=== PATIENT | female | born 1930 | race Caucasian/White ===

== ENCOUNTER 2016-06-11 09:18 | Emergency (ER) | payer MEDICARE, OTHER ==
[2016-06-11 10:30] LABS: MEAN CORPUSCULAR HEMOGLOBIN 31.2 pg (27.0-33.0); MEAN CORPUSCULAR HGB CONC 32.6 g/dl (32.0-36.5); MEAN CORPUSCULAR VOLUME 95.6 fl (80.0-96.0); RED CELL DISTRIBUTION WIDTH 12.9 % (11.5-14.5); WHITE BLOOD COUNT 9.6 K/mm3 (4.0-10.0)
[2016-06-11 10:37] LABS: INR 2.72
--- NOTE | 2016-06-11 11:02 | EDDOCDS ---
Physician Documentation [facility] Name: Justine Gomez Age: 85 yrs Sex: Female : 1930 Arrival Date: 06/11/2016 Time: 09:18 Bed I8 / 16 Private MD: Home Disposition: 06/11/16 10:52 Discharged to Home/Self Care. Impression: Epistaxis - Resolved. - Condition is Stable. - Discharge Instructions: Nosebleed. - Prescriptions for Bactroban Nasal 2 % Nasal Ointment - apply 1 application by TOPICAL route every 12 hours for 5 days; 15 tube. - Medication Reconciliation form. - Follow up: Home; When: Call to arrange an appointment; Reason: Wound/Symptom Recheck, Recheck today's complaints, Worsening of conditions, Continuance of care. - Problem is new. - Symptoms are resolved. - Notes: Your INR is 2.72 today. Please call your regular doctor about this result for further instructions regarding your medications. Historical: - Allergies: Codeine Sulfatehallucinations; - Home Meds: 1. benazepril 20 mg oral tab 1 tab 2 times per day (Last dose: 06/11/2016 08:00) 2. carvedilol 25 mg oral tab 1 tab nightly 3. carvedilol 12.5 mg oral tab daily (Last dose: 06/11/2016 03:00) 4. digoxin 125 mcg Oral tab 1 tab once daily (Last dose: 06/11/2016 08:00) 5. Coumadin 2.5 mg oral tab 1 tab once daily , fri, friday, friday, friday (Last dose: 06/10/2016 16:00) 6. Coumadin 5 mg Oral tab 1 tab once daily fri, 7. aspirin 81 mg Oral TbEC 1 tab once daily (Last dose: 06/11/2016 08:00) 8. furosemide 40 mg Oral tab .25 tab once daily (Last dose: 06/11/2016 08:00) 9. spironolactone 25 mg Oral tab .25 tab once daily (Last dose: 06/11/2016 08:00) 10. multivitamin Oral tab daily 11. Vision Formula oral tab daily 12. Vitamin B-6 100 mg Oral tab daily 13. Vitamin D Oral 1,000 unit daily 14. Eye Drops ophthalmic drop daily - PMHx: Hypertension; cardiomyopathy; CHF; - PSHx: Pacemaker Insertion; Mitral Valve Repair; Tubal ligation; - Social history: Smoking status: Patient states was never smoker of tobacco. No barriers to communication noted, The patient speaks fluent Syriac, Speaks appropriately for age. - Family history: Not pertinent. - : The pt / caregiver states he / she is on anticoagulants: coumadin. Home medication list is obtained from the patient. - Exposure Risk Screening:: None identified. Vital Signs: 06/11 09:19 BP 169 / 86; Pulse 71; Resp 18; Temp 96.6(O); Pulse Ox 95% on R/A; Weight 63.5 kg / elp 139.99 lbs (R); Height 5 ft. 6 in. (167.64 cm) (R); 10:59 BP 170 / 75; Pulse 64; Resp 18; Temp 97.3(O); Pulse Ox 94% on R/A; Pain 0/10; ck1 09:19 Body Mass Index 22.60 (63.50 kg, 167.64 cm) elp MDM: 09:32 CBC Ordered. EDMS 09:32 PT/INR Ordered. EDMS 10:46 CBC Reviewed. cc10 10:46 PT/INR Reviewed. cc10 Signatures: Dispatcher [employer] Hortensia Sánchez RN RN ck1 Dede Molina RN RN hs1 Joel Turner PA-C PABrian cc10 The chart was reviewed and I authenticate all verbal orders and agree with the evaluation and treatment provided.Corrections: (The following items were deleted from the chart) 10:16 09:32 BASIC METABOLIC PROFILE+LAB ordered. EDMS EDMS MTDD
--- NOTE | 2016-06-11 11:02 | EDDOCDS ---
Nurse's Notes [facility] Name: Justine Gomez Age: 85 yrs Sex: Female : 1930 Arrival Date: 06/11/2016 Time: 09:18 Bed I8 / 16 Private MD: Home Diagnosis: Epistaxis-Resolved Presentation: 06/11 09:25 Presenting complaint: Patient states: nosebleed on Coumadin. Patient states started at hs1 7am. Noted to not be bleeding at present. Adult Sepsis Screening: The patient does not have new or worsening altered mentation. Patient's respiratory rate is less than 22. Systolic blood pressure is greater than 100. Patient has a qSOFA score of 0- Negative Sepsis Screen. Suicide/Homicide risk assessment- the patient denies having any suicidal and/or homicidal ideations and does not present with any other emotional, behavioral or mental health complaints. Status: Patient is not a behavioral services tech or dependent. Transition of care: patient was not received from another setting of care. 09:25 Acuity: DERECK Level 3 hs1 09:25 Method Of Arrival: Walkin/Carried/Asstd hs1 Triage Assessment: 09:37 General: Appears in no apparent distress, comfortable, Behavior is appropriate for age, hs1 cooperative. Pain: Denies pain. Neurological: No deficits noted. Respiratory: No deficits noted. Airway is patent Respiratory effort is even, unlabored, Respiratory pattern is regular, symmetrical. Derm: Skin is pink, warm & dry. normal. Historical: - Allergies: Codeine Sulfatehallucinations; - Home Meds: 1. benazepril 20 mg oral tab 1 tab 2 times per day (Last dose: 06/11/2016 08:00) 2. carvedilol 25 mg oral tab 1 tab nightly 3. carvedilol 12.5 mg oral tab daily (Last dose: 06/11/2016 03:00) 4. digoxin 125 mcg Oral tab 1 tab once daily (Last dose: 06/11/2016 08:00) 5. Coumadin 2.5 mg oral tab 1 tab once daily , fri, friday, friday, friday (Last dose: 06/10/2016 16:00) 6. Coumadin 5 mg Oral tab 1 tab once daily fri, 7. aspirin 81 mg Oral TbEC 1 tab once daily (Last dose: 06/11/2016 08:00) 8. furosemide 40 mg Oral tab .25 tab once daily (Last dose: 06/11/2016 08:00) 9. spironolactone 25 mg Oral tab .25 tab once daily (Last dose: 06/11/2016 08:00) 10. multivitamin Oral tab daily 11. Vision Formula oral tab daily 12. Vitamin B-6 100 mg Oral tab daily 13. Vitamin D Oral 1,000 unit daily 14. Eye Drops ophthalmic drop daily - PMHx: Hypertension; cardiomyopathy; CHF; - PSHx: Pacemaker Insertion; Mitral Valve Repair; Tubal ligation; - Social history: Smoking status: Patient states was never smoker of tobacco. No barriers to communication noted, The patient speaks fluent French, Speaks appropriately for age. - Family history: Not pertinent. - : The pt / caregiver states he / she is on anticoagulants: coumadin. Home medication list is obtained from the patient. - Exposure Risk Screening:: None identified. Screenin:00 Screening information is obtained from the patient. Fall risk: No risks identified. ck1 Assistance ADL's: requires no assistance with activities of daily living. Abuse/DV Screen: The patient / caregiver reports he/she is: not in a situation that causes fear, pain or injury. Nutritional screening: No deficits noted. Advance Directives: Currently, there is no health care proxy. home support is adequate. Assessment: 11:01 General: Appears in no apparent distress, comfortable, Behavior is appropriate for age, ck1 cooperative. Pain: Denies pain. Neurological: Level of Consciousness is awake, alert, obeys commands, Oriented to person, place, time. Respiratory: Respiratory effort is unlabored, Respiratory pattern is regular, symmetrical. Derm: Skin is intact, is healthy with good turgor, Skin is pink, warm & dry. Musculoskeletal: Circulation, motion, and sensation intact Range of motion intact in all extremities. Vital Signs: 09:19 BP 169 / 86; Pulse 71; Resp 18; Temp 96.6(O); Pulse Ox 95% on R/A; Weight 63.5 kg (R); elp Height 5 ft. 6 in. (167.64 cm) (R); 10:59 BP 170 / 75; Pulse 64; Resp 18; Temp 97.3(O); Pulse Ox 94% on R/A; Pain 0/10; ck1 09:19 Body Mass Index 22.60 (63.50 kg, 167.64 cm) [facility] Vitals: 09:19 Log In Time: June 11, 2016 at 09:17. [facility] ED Course: 09:19 Patient visited by Verena Rincon PCA. elp 09:19 Home is Private Physician. elp 09:19 Patient moved to Waiting elp 09:20 Patient visited by Verena Rincon PCA. elp 09:20 Patient moved to Pre RCE elp 09:26 Triage Initiated hs1 09:38 Patient moved to I8 / 16 hs1 09:41 Joel Turner [facility] cc10 09:41 Sweetie Jones MD is Attending Physician. cc10 09:41 Patient visited by Joel Turner PA-C. cc10 09:42 Patient visited by Joel Turner PA-C. cc10 10:20 Patient visited by Thania Mosquera RN. mcp 10:20 PT/INR Sent. mcp 10:20 CBC Sent. mcp 10:20 Labs drawn. (by ED staff). Sent per order to lab. mcp 10:52 Home is Referral Physician. cc10 11:00 The patient / caregiver is instructed regarding the plan of care and ED course. ck1 11:00 No IV's were initiated during this patient's visit. No procedures done that require ck1 assistance. Order Results: Lab Order: CBC; SPEC'M 06/11/16 10:18 Test: WHITE BLOOD COUNT; Value: 9.6; Range: 4.0-10.0; Units: K/mm3; Status: F Test: RED BLOOD COUNT; Value: 3.96; Range: 4.00-5.40; Abnormal: Below low normal; Units: M/mm3; Status: F Test: HEMOGLOBIN; Value: 12.4; Range: 12.0-16.0; Units: g/dl; Status: F Test: HEMATOCRIT; Value: 37.9; Range: 36.0-47.0; Units: %; Status: F Test: MEAN CORPUSCULAR VOLUME; Value: 95.6; Range: 80.0-96.0; Units: fl; Status: F Test: MEAN CORPUSCULAR HEMOGLOBIN; Value: 31.2; Range: 27.0-33.0; Units: pg; Status: F Test: MEAN CORPUSCULAR HGB CONC; Value: 32.6; Range: 32.0-36.5; Units: g/dl; Status: F Test: RED CELL DISTRIBUTION WIDTH; Value: 12.9; Range: 11.5-14.5; Units: %; Status: F Test: PLATELET COUNT, AUTOMATED; Value: 214; Range: 150-450; Units: k/mm3; Status: F Lab Order: PT/INR; SPEC'M 06/11/16 10:18 Test: PROTHROMBIN TIME; Value: 28.9; Range: 12.3-14.5; Abnormal: Above high normal; Units: SECONDS; Status: F Test: INR; Value: 2.72; Status: F Test Note: ; THERAPUTIC HUMAN INR VALUES INDICATIONS NORMAL RANGES PROPHYLAXIS/TREATMENT OF: VENOUS THROMBOSIS 2.0-3.0 PULMONARY EMBOLISM 2.0-3.0 PREVENTION OF SYSTEMIC EMBOLISM FROM: TISSUE HEART VALVES 2.0-3.0 ACUTE MYOCARDIAL INFARCTION 2.0-3.0 VALVULAR HEART DISEASE 2.0-3.0 ATRIAL FIBRILLATION 2.0-3.0 MECHANICAL VALVES(HIGH RISK) 2.5-3.5 RECURRENT MYOCARDIAL INFARCTION 2.5-3.5 Outcome: 10:52 Discharge ordered by Provider. cc10 11:00 Discharge Assessment: Patient awake, alert and oriented x 3. No cognitive and/or ck1 functional deficits noted. Patient verbalized understanding of disposition instructions. patient administered narcotics - no. The following High Risk Discharge criteria are identified: None. Discharged to home ambulatory. Condition: stable. Discharge instructions given to patient, Instructed on discharge instructions, follow up and referral plans. medication usage, Demonstrated understanding of instructions, medications, Pt was receptive of discharge instructions/ teaching. Prescriptions given X 1. No special radiology studies were completed. Property :Personal belongings accompany Pt. 11:02 Patient left the ED. ck1 Signatures: Thania Mosquera RN RN [facility] Hortensia Yu RN RN ck1 Dede Molina RN RN hs1 Sergey, Verena, LUMBER DRIVER LUMBER DRIVER elp Joel Turner, PA-C PA-C cc10 MTDD
--- NOTE | 2016-06-13 12:03 | EDDOCDS ---
Nurse's Notes [facility] Name: Justine Gomez Age: 85 yrs Sex: Female : 1930 Arrival Date: 06/11/2016 Time: 09:18 Bed I8 / 16 Private MD: Home Diagnosis: Epistaxis-Resolved Presentation: 06/11 09:25 Presenting complaint: Patient states: nosebleed on Coumadin. Patient states started at hs1 7am. Noted to not be bleeding at present. Adult Sepsis Screening: The patient does not have new or worsening altered mentation. Patient's respiratory rate is less than 22. Systolic blood pressure is greater than 100. Patient has a qSOFA score of 0- Negative Sepsis Screen. Suicide/Homicide risk assessment- the patient denies having any suicidal and/or homicidal ideations and does not present with any other emotional, behavioral or mental health complaints. Status: Patient is not a coffee maker servicer or dependent. Transition of care: patient was not received from another setting of care. 09:25 Acuity: DERECK Level 3 hs1 09:25 Method Of Arrival: Walkin/Carried/Asstd hs1 Triage Assessment: 09:37 General: Appears in no apparent distress, comfortable, Behavior is appropriate for age, hs1 cooperative. Pain: Denies pain. Neurological: No deficits noted. Respiratory: No deficits noted. Airway is patent Respiratory effort is even, unlabored, Respiratory pattern is regular, symmetrical. Derm: Skin is pink, warm & dry. normal. Historical: - Allergies: Codeine Sulfatehallucinations; - Home Meds: 1. benazepril 20 mg oral tab 1 tab 2 times per day (Last dose: 06/11/2016 08:00) 2. carvedilol 25 mg oral tab 1 tab nightly 3. carvedilol 12.5 mg oral tab daily (Last dose: 06/11/2016 03:00) 4. digoxin 125 mcg Oral tab 1 tab once daily (Last dose: 06/11/2016 08:00) 5. Coumadin 2.5 mg oral tab 1 tab once daily , fri, friday, friday, friday (Last dose: 06/10/2016 16:00) 6. Coumadin 5 mg Oral tab 1 tab once daily fri, 7. aspirin 81 mg Oral TbEC 1 tab once daily (Last dose: 06/11/2016 08:00) 8. furosemide 40 mg Oral tab .25 tab once daily (Last dose: 06/11/2016 08:00) 9. spironolactone 25 mg Oral tab .25 tab once daily (Last dose: 06/11/2016 08:00) 10. multivitamin Oral tab daily 11. Vision Formula oral tab daily 12. Vitamin B-6 100 mg Oral tab daily 13. Vitamin D Oral 1,000 unit daily 14. Eye Drops ophthalmic drop daily - PMHx: Hypertension; cardiomyopathy; CHF; - PSHx: Pacemaker Insertion; Mitral Valve Repair; Tubal ligation; - Social history: Smoking status: Patient states was never smoker of tobacco. No barriers to communication noted, The patient speaks fluent Sami, Speaks appropriately for age. - Family history: Not pertinent. - : The pt / caregiver states he / she is on anticoagulants: coumadin. Home medication list is obtained from the patient. - Exposure Risk Screening:: None identified. Screenin:00 Screening information is obtained from the patient. Fall risk: No risks identified. ck1 Assistance ADL's: requires no assistance with activities of daily living. Abuse/DV Screen: The patient / caregiver reports he/she is: not in a situation that causes fear, pain or injury. Nutritional screening: No deficits noted. Advance Directives: Currently, there is no health care proxy. home support is adequate. Assessment: 11:01 General: Appears in no apparent distress, comfortable, Behavior is appropriate for age, ck1 cooperative. Pain: Denies pain. Neurological: Level of Consciousness is awake, alert, obeys commands, Oriented to person, place, time. Respiratory: Respiratory effort is unlabored, Respiratory pattern is regular, symmetrical. Derm: Skin is intact, is healthy with good turgor, Skin is pink, warm & dry. Musculoskeletal: Circulation, motion, and sensation intact Range of motion intact in all extremities. Vital Signs: 09:19 BP 169 / 86; Pulse 71; Resp 18; Temp 96.6(O); Pulse Ox 95% on R/A; Weight 63.5 kg (R); elp Height 5 ft. 6 in. (167.64 cm) (R); 10:59 BP 170 / 75; Pulse 64; Resp 18; Temp 97.3(O); Pulse Ox 94% on R/A; Pain 0/10; ck1 09:19 Body Mass Index 22.60 (63.50 kg, 167.64 cm) [facility] Vitals: 09:19 Log In Time: June 11, 2016 at 09:17. [facility] ED Course: 09:19 Patient visited by Verena Rincon PCA. elp 09:19 Home is Private Physician. elp 09:19 Patient moved to Waiting elp 09:20 Patient visited by Verena Rincon PCA. elp 09:20 Patient moved to Pre RCE elp 09:26 Triage Initiated hs1 09:38 Patient moved to I8 / 16 hs1 09:41 Joel Turner PA-C is PHCP. cc10 09:41 Sweetie Jones MD is Attending Physician. cc10 09:41 Patient visited by Joel Turner PA-C. cc10 09:42 Patient visited by Joel Turner PA-C. cc10 10:20 Patient visited by Thania Mosquera RN. mcp 10:20 PT/INR Sent. mcp 10:20 CBC Sent. mcp 10:20 Labs drawn. (by ED staff). Sent per order to lab. mcp 10:52 Home is Referral Physician. cc10 11:00 The patient / caregiver is instructed regarding the plan of care and ED course. ck1 11:00 No IV's were initiated during this patient's visit. No procedures done that require ck1 assistance. 11:05 [facility] Payment Agreement was scanned into [employer] and attached to record. jp5 15:08 T-Sheet-- Draft Copy was scanned into [employer] and attached to record. gb Order Results: Lab Order: CBC; SPEC'M 06/11/16 10:18 Test: WHITE BLOOD COUNT; Value: 9.6; Range: 4.0-10.0; Units: K/mm3; Status: F Test: RED BLOOD COUNT; Value: 3.96; Range: 4.00-5.40; Abnormal: Below low normal; Units: M/mm3; Status: F Test: HEMOGLOBIN; Value: 12.4; Range: 12.0-16.0; Units: g/dl; Status: F Test: HEMATOCRIT; Value: 37.9; Range: 36.0-47.0; Units: %; Status: F Test: MEAN CORPUSCULAR VOLUME; Value: 95.6; Range: 80.0-96.0; Units: fl; Status: F Test: MEAN CORPUSCULAR HEMOGLOBIN; Value: 31.2; Range: 27.0-33.0; Units: pg; Status: F Test: MEAN CORPUSCULAR HGB CONC; Value: 32.6; Range: 32.0-36.5; Units: g/dl; Status: F Test: RED CELL DISTRIBUTION WIDTH; Value: 12.9; Range: 11.5-14.5; Units: %; Status: F Test: PLATELET COUNT, AUTOMATED; Value: 214; Range: 150-450; Units: k/mm3; Status: F Lab Order: PT/INR; SPEC'M 06/11/16 10:18 Test: PROTHROMBIN TIME; Value: 28.9; Range: 12.3-14.5; Abnormal: Above high normal; Units: SECONDS; Status: F Test: INR; Value: 2.72; Status: F Test Note: ; THERAPUTIC HUMAN INR VALUES INDICATIONS NORMAL RANGES PROPHYLAXIS/TREATMENT OF: VENOUS THROMBOSIS 2.0-3.0 PULMONARY EMBOLISM 2.0-3.0 PREVENTION OF SYSTEMIC EMBOLISM FROM: TISSUE HEART VALVES 2.0-3.0 ACUTE MYOCARDIAL INFARCTION 2.0-3.0 VALVULAR HEART DISEASE 2.0-3.0 ATRIAL FIBRILLATION 2.0-3.0 MECHANICAL VALVES(HIGH RISK) 2.5-3.5 RECURRENT MYOCARDIAL INFARCTION 2.5-3.5 Outcome: 10:52 Discharge ordered by Provider. cc10 11:00 Discharge Assessment: Patient awake, alert and oriented x 3. No cognitive and/or ck1 functional deficits noted. Patient verbalized understanding of disposition instructions. patient administered narcotics - no. The following High Risk Discharge criteria are identified: None. Discharged to home ambulatory. Condition: stable. Discharge instructions given to patient, Instructed on discharge instructions, follow up and referral plans. medication usage, Demonstrated understanding of instructions, medications, Pt was receptive of discharge instructions/ teaching. Prescriptions given X 1. No special radiology studies were completed. Property :Personal belongings accompany Pt. 11:02 Patient left the ED. ck1 Signatures: Thania Mosquera RN RN Lexus Starkey, Adelina Galdamezie,RN RN ck1 Dede Molina, RN RN hs1 Verena Rincon, OUTSIDE CONTRACTOR SALES OUTSIDE CONTRACTOR SALES elp Joel Turner, GLENNA MANZANARES cc10 Paula Siegel jp5 Chart Complete MTDD
--- NOTE | 2016-06-13 12:03 | EDDOCDS ---
Physician Documentation [facility] Name: Justine Gomez Age: 85 yrs Sex: Female : 1930 Arrival Date: 06/11/2016 Time: 09:18 Bed I8 / 16 Private MD: Home Disposition: 06/11/16 10:52 Discharged to Home/Self Care. Impression: Epistaxis - Resolved. - Condition is Stable. - Discharge Instructions: Nosebleed. - Prescriptions for Bactroban Nasal 2 % Nasal Ointment - apply 1 application by TOPICAL route every 12 hours for 5 days; 15 tube. - Medication Reconciliation form. - Follow up: Home; When: Call to arrange an appointment; Reason: Wound/Symptom Recheck, Recheck today's complaints, Worsening of conditions, Continuance of care. - Problem is new. - Symptoms are resolved. - Notes: Your INR is 2.72 today. Please call your regular doctor about this result for further instructions regarding your medications. Historical: - Allergies: Codeine Sulfatehallucinations; - Home Meds: 1. benazepril 20 mg oral tab 1 tab 2 times per day (Last dose: 06/11/2016 08:00) 2. carvedilol 25 mg oral tab 1 tab nightly 3. carvedilol 12.5 mg oral tab daily (Last dose: 06/11/2016 03:00) 4. digoxin 125 mcg Oral tab 1 tab once daily (Last dose: 06/11/2016 08:00) 5. Coumadin 2.5 mg oral tab 1 tab once daily , fri, friday, friday, friday (Last dose: 06/10/2016 16:00) 6. Coumadin 5 mg Oral tab 1 tab once daily fri, 7. aspirin 81 mg Oral TbEC 1 tab once daily (Last dose: 06/11/2016 08:00) 8. furosemide 40 mg Oral tab .25 tab once daily (Last dose: 06/11/2016 08:00) 9. spironolactone 25 mg Oral tab .25 tab once daily (Last dose: 06/11/2016 08:00) 10. multivitamin Oral tab daily 11. Vision Formula oral tab daily 12. Vitamin B-6 100 mg Oral tab daily 13. Vitamin D Oral 1,000 unit daily 14. Eye Drops ophthalmic drop daily - PMHx: Hypertension; cardiomyopathy; CHF; - PSHx: Pacemaker Insertion; Mitral Valve Repair; Tubal ligation; - Social history: Smoking status: Patient states was never smoker of tobacco. No barriers to communication noted, The patient speaks fluent Yi, Speaks appropriately for age. - Family history: Not pertinent. - : The pt / caregiver states he / she is on anticoagulants: coumadin. Home medication list is obtained from the patient. - Exposure Risk Screening:: None identified. Vital Signs: 06/11 09:19 BP 169 / 86; Pulse 71; Resp 18; Temp 96.6(O); Pulse Ox 95% on R/A; Weight 63.5 kg / elp 139.99 lbs (R); Height 5 ft. 6 in. (167.64 cm) (R); 10:59 BP 170 / 75; Pulse 64; Resp 18; Temp 97.3(O); Pulse Ox 94% on R/A; Pain 0/10; ck1 09:19 Body Mass Index 22.60 (63.50 kg, 167.64 cm) elp MDM: 09:32 CBC Ordered. EDMS 09:32 PT/INR Ordered. EDMS 10:46 CBC Reviewed. cc10 10:46 PT/INR Reviewed. cc10 11:05 [facility] Payment Agreement was scanned into [employer] and attached to record. 5 11:05 Financial registration complete. jp5 15:08 T-Sheet-- Draft Copy was scanned into [employer] and attached to record. gb Signatures: Dispatcher [employer] EDIA Lexus Gutierrez, Reg Reg gb Hortensia YuRN RN ck1 Dede Molina RN RN hs1 Joel Turner PA-C PABrian cc10 Paula Siegel jp5 The chart was reviewed and I authenticate all verbal orders and agree with the evaluation and treatment provided.Corrections: (The following items were deleted from the chart) 10:16 09:32 BASIC METABOLIC PROFILE+LAB ordered. EDMS EDMS Attachments: 11:05 [facility] Payment Agreement jp5 15:08 T-Sheet-- Draft Copy gb Chart Complete MTDD
--- NOTE | 2016-06-13 12:03 | EDDOCDS ---
Physician Documentation [facility] Name: Justine Gomez Age: 85 yrs Sex: Female : 1930 Arrival Date: 06/11/2016 Time: 09:18 Bed I8 / 16 Private MD: Home Disposition: 06/11/16 10:52 Discharged to Home/Self Care. Impression: Epistaxis - Resolved. - Condition is Stable. - Discharge Instructions: Nosebleed. - Prescriptions for Bactroban Nasal 2 % Nasal Ointment - apply 1 application by TOPICAL route every 12 hours for 5 days; 15 tube. - Medication Reconciliation form. - Follow up: Home; When: Call to arrange an appointment; Reason: Wound/Symptom Recheck, Recheck today's complaints, Worsening of conditions, Continuance of care. - Problem is new. - Symptoms are resolved. - Notes: Your INR is 2.72 today. Please call your regular doctor about this result for further instructions regarding your medications. Historical: - Allergies: Codeine Sulfatehallucinations; - Home Meds: 1. benazepril 20 mg oral tab 1 tab 2 times per day (Last dose: 06/11/2016 08:00) 2. carvedilol 25 mg oral tab 1 tab nightly 3. carvedilol 12.5 mg oral tab daily (Last dose: 06/11/2016 03:00) 4. digoxin 125 mcg Oral tab 1 tab once daily (Last dose: 06/11/2016 08:00) 5. Coumadin 2.5 mg oral tab 1 tab once daily , fri, friday, friday, friday (Last dose: 06/10/2016 16:00) 6. Coumadin 5 mg Oral tab 1 tab once daily fri, 7. aspirin 81 mg Oral TbEC 1 tab once daily (Last dose: 06/11/2016 08:00) 8. furosemide 40 mg Oral tab .25 tab once daily (Last dose: 06/11/2016 08:00) 9. spironolactone 25 mg Oral tab .25 tab once daily (Last dose: 06/11/2016 08:00) 10. multivitamin Oral tab daily 11. Vision Formula oral tab daily 12. Vitamin B-6 100 mg Oral tab daily 13. Vitamin D Oral 1,000 unit daily 14. Eye Drops ophthalmic drop daily - PMHx: Hypertension; cardiomyopathy; CHF; - PSHx: Pacemaker Insertion; Mitral Valve Repair; Tubal ligation; - Social history: Smoking status: Patient states was never smoker of tobacco. No barriers to communication noted, The patient speaks fluent Indonesian, Speaks appropriately for age. - Family history: Not pertinent. - : The pt / caregiver states he / she is on anticoagulants: coumadin. Home medication list is obtained from the patient. - Exposure Risk Screening:: None identified. Vital Signs: 06/11 09:19 BP 169 / 86; Pulse 71; Resp 18; Temp 96.6(O); Pulse Ox 95% on R/A; Weight 63.5 kg / elp 139.99 lbs (R); Height 5 ft. 6 in. (167.64 cm) (R); 10:59 BP 170 / 75; Pulse 64; Resp 18; Temp 97.3(O); Pulse Ox 94% on R/A; Pain 0/10; ck1 09:19 Body Mass Index 22.60 (63.50 kg, 167.64 cm) elp MDM: 09:32 CBC Ordered. EDMS 09:32 PT/INR Ordered. EDMS 10:46 CBC Reviewed. cc10 10:46 PT/INR Reviewed. cc10 11:05 [facility] Payment Agreement was scanned into [employer] and attached to record. 5 11:05 Financial registration complete. jp5 15:08 T-Sheet-- Draft Copy was scanned into [employer] and attached to record. gb Signatures: Dispatcher MedHo EDNH Lexus Gutierrez, Reg Reg gb Hortensia YuRN RN ck1 Dede Molina RN RN hs1 Joel Turner PA-C PABrian cc10 Paula Siegel jp5 The chart was reviewed and I authenticate all verbal orders and agree with the evaluation and treatment provided.Corrections: (The following items were deleted from the chart) 10:16 09:32 BASIC METABOLIC PROFILE+LAB ordered. EDMS EDMS Attachments: 11:05 [facility] Payment Agreement jp5 15:08 T-Sheet-- Draft Copy gb Chart Complete MTDD
== END 2016-06-11 11:02 | disposition home or self-care (01) ==
LOC: M ED 09:18
DX: R04.0 Epistaxis (principal); I10 Essential (primary) hypertension; I42.9 Cardiomyopathy, unspecified; I50.20 Unspecified systolic (congestive) heart failure; Z95.0 Presence of cardiac pacemaker; Z95.4 Presence of other heart-valve replacement; Z79.01 Long term (current) use of anticoagulants; Z79.899 Other long term (current) drug therapy; Z79.82 Long term (current) use of aspirin; Z88.5 Allergy status to narcotic agent

== ENCOUNTER 2017-03-13 07:35 | Day surgery (SDC) | payer MEDICARE, OTHER ==
[~2017-03-13] VITALS: Ht 167.6 cm; Wt 65.8 kg
[~2017-03-13 07:35] MED LIST: ASPI1TAB PO; BENA20TA8 PO; CALCTAB29 PO; CARV12.5 PO; CARV25TA PO; DIGO0.12 PO; FOLI800C PO; LASI40TA PO; MULT1TAB10 PO; OFLOXACIN 0.3 % (OCUFLOX) OPTH SOL 5ML OS ONE; PARO10TA3 PO; PHENYLEPHRINE 2.5% OPHTH SOL 2ML OS ONE; PROPARACAINE 0.5% OPHTH SOL 15ML OS ONE; SPIR25TA2 PO; TROPICAMIDE 1% OPHTH SOLN 2ML OS ONE; VISI1TAB PO; VITA50TA43 PO; WARF-23 PO; dry eye drops OU
[2017-03-13] MEDS ORDERED: LIDOCAINE 1% MDV 20ML VIAL SQ PRN (08:00)
[2017-03-13] MEDS ORDERED: POVIDONE-IODINE 5% OPHTH PREP SOL 30ML As Ordered ONE (09:16)
[2017-03-13] MEDS ORDERED: BALANCED SALT IRRIGATION SOLUTION 500ML BAG (FOR OR EYE MACHINE) As Ordered ONE (09:16)
[2017-03-13] MEDS ORDERED: ACETYLCHOLINE OPHTH SOLN 1% 2ML (MIOCHOL-E) As Ordered ONE (09:16)
[2017-03-13] MEDS ORDERED: LIDOCAINE 0.75%/EPINEPHRINE 0.025% IN BSS 1ML SYR INTRACAMERAL (OR ONLY) As Ordered ONE (09:17)
[2017-03-13] MEDS ORDERED: DUOVISC (0.50ML VISCOAT/0.55ML PROVISC) OPHTH KIT As Ordered ONE (09:17)
[2017-03-13] MEDS ORDERED: CEFUROXIME 1MG/0.1ML INTRACAMERAL INJ As Ordered ONE (09:17)
[2017-03-13] MEDS ORDERED: fentaNYL 100 MCG/2 ML INJECTION (J3010) As Ordered ONE (09:25)
[2017-03-13] MEDS ORDERED: MIDAZOLAM INJ 2 MG/2 ML VIAL (J2250) As Ordered ONE (09:25)
[2017-03-13 10:30] VITALS: BP 174/74
--- NOTE | 2017-03-15 10:49 | RO ---
DATE OF PROCEDURE: 03/13/2017 PREOPERATIVE DIAGNOSIS: Visually significant nuclear sclerotic cataract left eye. POSTOPERATIVE DIAGNOSIS: Visually significant nuclear sclerotic cataract left eye. PROCEDURE: Cataract extraction with use of phacoemulsification and placement of intraocular lens, AU00T0, 23.0, left eye. SURGEON: Juan F Vasquez DO LOGISTICS ADMINISTRATOR: ANESTHESIA: Local with monitored anesthesia care (MAC). COMPLICATIONS: None. POSTOPERATIVE CONDITION: Stable. INDICATION FOR SURGERY: Blurred vision left eye affecting patient's activities of daily living. DESCRIPTION OF PROCEDURE: The patient was seen in the preoperative area and properly identified. The correct operative eye was identified and marked. Attention was turned to that eye. The patient received topical antibiotics in the preoperative area. The patient then received topical dilating drops consisting of tropicamide and phenylephrine. The patient was then transferred to the operating room. The correct side was re-identified. The patient received topical anesthetics and antibiotics on the surface of the eye. The eye was prepped and draped in a sterile fashion. The upper and lower eyelids were isolated with Tegaderm tape, and the lids were held open with an adjustable speculum. Using a sideport blade, a paracentesis incision was made. Intraocular preservative-free lidocaine was then injected into the anterior chamber. Viscoelastic was then injected into the anterior chamber through the paracentesis. Using a 2.4 mm sharp-tipped keratome, the anterior chamber was entered via a temporal clear corneal incision. A continuous curvilinear capsulorrhexis was created with the aid of a 26-gauge cystotome and Utrata forceps. Hydrodissection was performed with balanced salt solution (BSS) on a blunt cannula until the nucleus was freely mobile. The crystalline lens was phacoemulsified and aspirated. Additional cohesive viscoelastic was placed into the capsular bag to deepen it. A AU00T0, 23.0 lens was placed into the capsular bag and confirmed by visualizing the continuous curvilinear capsulorrhexis. Additional irrigation and aspiration was used to remove cortical material and remaining viscoelastic. The clear corneal incision was hydrated with BSS on a blunt cannula. The lens was well positioned. The incisions were then tested for leaks and found to be negative. The eye was then palpated for appropriate pressure and adjusted accordingly with BSS. The eyelid speculum was carefully removed. A shield was placed. The patient tolerated the procedure well and was discharged to the recovery unit in a stable condition. MTDD
== END 2017-03-13 10:51 | disposition home or self-care (01) ==
LOC: M SDC 07:35
PROVIDERS: ATTEND Ophthalmology
DX: H25.12 Age-related nuclear cataract, left eye (principal); I48.91 Unspecified atrial fibrillation; I10 Essential (primary) hypertension; K21.9 Gastro-esophageal reflux disease without esophagitis; I34.8 Other nonrheumatic mitral valve disorders; Z79.01 Long term (current) use of anticoagulants; Z79.82 Long term (current) use of aspirin; Z79.899 Other long term (current) drug therapy; Z95.0 Presence of cardiac pacemaker
CPT/HCPCS: 66984; J2250; J3010; V2632

== ENCOUNTER 2017-04-03 05:54 | Day surgery (SDC) | payer MEDICARE, OTHER ==
[~2017-04-03] VITALS: Ht 167.6 cm; Wt 66.1 kg
[~2017-04-03 05:54] MED LIST changes: -OFLOXACIN 0.3 % (OCUFLOX) OPTH SOL 5ML OS ONE; -PHENYLEPHRINE 2.5% OPHTH SOL 2ML OS ONE; -PROPARACAINE 0.5% OPHTH SOL 15ML OS ONE; -TROPICAMIDE 1% OPHTH SOLN 2ML OS ONE
[2017-04-03] MEDS ORDERED: SLF 3 ML SYR IV PRN (06:00)
[2017-04-03] MEDS ORDERED: SLF 3 ML SYR IV SCH (06:00)
[2017-04-03] MEDS ORDERED: POVIDONE-IODINE 5% OPHTH PREP SOL 30ML As Ordered ONE (06:47)
[2017-04-03] MEDS ORDERED: ACETYLCHOLINE OPHTH SOLN 1% 2ML (MIOCHOL-E) As Ordered ONE (06:47)
[2017-04-03] MEDS ORDERED: LIDOCAINE 0.75%/EPINEPHRINE 0.025% IN BSS 1ML SYR INTRACAMERAL (OR ONLY) As Ordered ONE ×2 (06:49→07:25)
[2017-04-03] MEDS ORDERED: CEFUROXIME 1MG/0.1ML INTRACAMERAL INJ As Ordered ONE (06:49)
[2017-04-03] MEDS ORDERED: BALANCED SALT IRRIGATION SOLUTION 500ML BAG (FOR OR EYE MACHINE) As Ordered ONE (06:49)
[2017-04-03] MEDS ORDERED: DUOVISC (0.50ML VISCOAT/0.55ML PROVISC) OPHTH KIT As Ordered ONE (06:49)
[2017-04-03] MEDS ORDERED: PROPARACAINE 0.5% OPHTH SOL 15ML OD ONE (07:00)
[2017-04-03] MEDS ORDERED: OFLOXACIN 0.3 % (OCUFLOX) OPTH SOL 5ML OD ONE (07:00)
[2017-04-03] MEDS ORDERED: TROPICAMIDE 1% OPHTH SOLN 2ML OD ONE (07:00)
[2017-04-03] MEDS ORDERED: PHENYLEPHRINE 2.5% OPHTH SOL 2ML OD ONE (07:00)
[2017-04-03] MEDS ORDERED: LIDOCAINE 3.5 % 1ML OPHTH TOPICAL GEL OU ONE (07:00)
[2017-04-03] MEDS ORDERED: fentaNYL 100 MCG/2 ML INJECTION (J3010) As Ordered ONE (07:06)
[2017-04-03] MEDS ORDERED: MIDAZOLAM INJ 2 MG/2 ML VIAL (J2250) As Ordered ONE (07:07)
[2017-04-03 08:20] VITALS: BP 166/68
--- NOTE | 2017-04-04 13:14 | RO ---
DATE OF PROCEDURE: 04/03/2017 PREOPERATIVE DIAGNOSIS: Visually significant nuclear sclerotic cataract right eye. POSTOPERATIVE DIAGNOSIS: Visually significant nuclear sclerotic cataract right eye. PROCEDURE: Cataract extraction with use of phacoemulsification and placement of intraocular lens, AU00T0, 22.5, right eye. SURGEON: Juan F Vasquez DO ENGRAVING OPERATOR: ANESTHESIA: Local with monitored anesthesia care (MAC). COMPLICATIONS: None. POSTOPERATIVE CONDITION: Stable. INDICATION FOR SURGERY: Blurred vision right eye affecting patient's activities of daily living. DESCRIPTION OF PROCEDURE: The patient was seen in the preoperative area and properly identified. The correct operative eye was identified and marked. Attention was turned to that eye. The patient received topical antibiotics in the preoperative area. The patient then received topical dilating drops consisting of tropicamide and phenylephrine. The patient was then transferred to the operating room. The correct side was re-identified. The patient received topical anesthetics and antibiotics on the surface of the eye. The eye was prepped and draped in a sterile fashion. The upper and lower eyelids were isolated with Tegaderm tape, and the lids were held open with an adjustable speculum. Using a sideport blade, a paracentesis incision was made. Intraocular preservative-free lidocaine was then injected into the anterior chamber. Viscoelastic was then injected into the anterior chamber through the paracentesis. Using a 2.65 mm sharp-tipped keratome, the anterior chamber was entered via a temporal clear corneal incision. A continuous curvilinear capsulorrhexis was created with the aid of a 26-gauge cystotome and Utrata forceps. Hydrodissection was performed with balanced salt solution (BSS) on a blunt cannula until the nucleus was freely mobile. The crystalline lens was phacoemulsified and aspirated. Additional cohesive viscoelastic was placed into the capsular bag to deepen it. An AU00T0 lens was placed into the capsular bag and confirmed by visualizing the continuous curvilinear capsulorrhexis. Additional irrigation and aspiration was used to remove cortical material and remaining viscoelastic. The clear corneal incision was hydrated with BSS on a blunt cannula. The lens was well positioned. The incisions were then tested for leaks and found to be negative. The eye was then palpated for appropriate pressure and adjusted accordingly with BSS. The eyelid speculum was carefully removed. TobraDex ointment was placed in the eye. An eye patch and shield were then secured over the eye. The patient tolerated the procedure well and was discharged to the recovery unit in a stable condition.
== END 2017-04-03 08:20 | disposition home or self-care (01) ==
LOC: M SDC 05:54
PROVIDERS: ATTEND Ophthalmology
DX: H25.11 Age-related nuclear cataract, right eye (principal); I48.91 Unspecified atrial fibrillation; I10 Essential (primary) hypertension; K21.9 Gastro-esophageal reflux disease without esophagitis; I34.9 Nonrheumatic mitral valve disorder, unspecified; I73.9 Peripheral vascular disease, unspecified; Z86.718 Personal history of other venous thrombosis and embolism; M19.90 Unspecified osteoarthritis, unspecified site; Z95.0 Presence of cardiac pacemaker; Z88.5 Allergy status to narcotic agent; Z79.899 Other long term (current) drug therapy; Z79.82 Long term (current) use of aspirin; Z79.01 Long term (current) use of anticoagulants
CPT/HCPCS: 66984; J2250; J3010; V2632

== ENCOUNTER 2019-02-19 11:10 | Emergency (ER) | payer MEDICARE, OTHER ==
[~2019-02-19] VITALS: Ht 167.6 cm; Wt 63.4 kg
[~2019-02-19 11:10] MED LIST changes: -ASPI1TAB PO; +ASPI81TA26 PO; -LASI40TA PO; +LASI40TA9 PO; +SPIR-10 PO; -SPIR25TA2 PO
[2019-02-19 11:49] LABS: BASO % 0.3 % (0.0-1.0); EOS # 0.1 10^3/uL (0.0-0.5); HEMATOCRIT 38.5 % (36.0-47.0); HEMOGLOBIN 12.6 g/dl (12.0-15.5); LYMPH # 0.9 10^3/uL (1.5-5.0); LYMPH % 7.4 % (24.0-44.0); MEAN CORPUSCULAR HEMOGLOBIN 31.2 pg (27.0-33.0); MEAN CORPUSCULAR HGB CONC 32.7 g/dl (32.0-36.5); MEAN CORPUSCULAR VOLUME 95.3 fl (80.0-96.0); NEUTROPHILS # 10.3 10^3/uL (1.5-8.5); NEUTROPHILS % 82.8 % (36.0-66.0); PLATELET COUNT, AUTOMATED 238 10^3/uL (150-450); RED BLOOD COUNT 4.04 10^6/uL (4.00-5.40); WHITE BLOOD COUNT 12.4 10^3/uL (4.0-10.0)
[2019-02-19 12:03] LABS: INR 2.03; PROTHROMBIN TIME 22.8 SECONDS (11.8-14.0)
[2019-02-19 12:04] LABS: PARTIAL THROMBOPLASTIN TIME 50.9 SECONDS (25.0-38.4)
[2019-02-19 12:21] LABS: ALBUMIN 3.7 GM/DL (3.2-5.2); BILIRUBIN,DIRECT 0.3 MG/DL (0.0-0.2); BILIRUBIN,TOTAL 0.9 MG/DL (0.2-1.0); TOTAL PROTEIN 7.2 GM/DL (6.4-8.2)
[2019-02-19 13:23] LABS: CALCIUM LEVEL 9.3 MG/DL (8.8-10.2); CREATININE FOR GFR 1.23 MG/DL (0.55-1.30); GLOMERULAR FILTRATION RATE 43.9 (>32); POTASSIUM SERUM 4.4 MEQ/L (3.5-5.1)
[2019-02-19] MEDS ORDERED: ISOVUE-370 76% 100ML VIAL (Q9967) As Ordered ONE (13:41)
--- NOTE | 2019-02-19 14:45 | REP ---
CT ABDOMEN AND PELVIS WITH IV BUT WITHOUT ORAL CONTRAST: HISTORY: Lower abdomen pain, left greater than right. No comparison study. CT CONTRAST DOSE: 100 mL of intravenous Isovue [address] FINDINGS: Digital preliminary attorney lawyer radiograph shows clips in the right upper quadrant and an enlarged heart with pacemaker. There is four-chamber cardiomegaly visible on the uppermost images with reflux of contrast opacified blood into the liver. This implies right heart failure. No adrenal lesion is seen. No focal splenic or hepatic lesion is appreciated. There are bilateral renal cortical cysts. The largest of these is in the lower pole right kidney measuring 4.0 cm in diameter. No hydronephrosis is seen. No renal calculus is observed. No pancreatic abnormality is observed. No retroperitoneal mass or adenopathy is seen. Pelvic CT images demonstrate mural thickening and diverticulosis affecting the sigmoid colon. There is some intramural gas and some crystal colonic fat infiltration consistent with acute diverticulitis. No abscess is seen. No free intraperitoneal air is seen. A normal appendix is visible in the right lower quadrant. No uterine or adnexal abnormality is seen. Urinary bladder is unremarkable. IMPRESSION: Findings consistent with acute diverticulitis affecting the sigmoid colon with intramural gas and pericolonic fat streaking. No abscess or remote free air. Mild ileus pattern in the bowel gas. Post cholecystectomy. Multiple simple renal cysts. Cardiomegaly with pacemaker and evidence of right heart failure. Electronically Signed by Layo Echeverria MD 02/19/2019 07:43 P
[2019-02-19] MEDS ORDERED: CIPROFLOXACIN 400 MG in IV 1 EA IV ONE (15:15)
[2019-02-19] MEDS ORDERED: FLAG500T PO (15:43)
[2019-02-19] MEDS ORDERED: ONDA4TAB6 PO (15:43)
[2019-02-19] MEDS ORDERED: CIPR500T3 PO (15:43)
[2019-02-19] MEDS ORDERED: metroNIDAZOLE 500 MG in IV 1 EA IV ONE (16:00)
[2019-02-19 18:19] VITALS: BP 172/84
== END 2019-02-19 23:08 | disposition home or self-care (01) ==
LOC: M ED 11:10
DX: K57.92 Diverticulitis of intestine, part unspecified, without perforation or abscess without bleeding (principal); I11.0 Hypertensive heart disease with heart failure; I50.9 Heart failure, unspecified; I48.91 Unspecified atrial fibrillation; Z79.899 Other long term (current) drug therapy; Z79.82 Long term (current) use of aspirin; Z79.01 Long term (current) use of anticoagulants; Z88.5 Allergy status to narcotic agent
CPT/HCPCS: 74177; 80048; 80076; 81001; 82150; 83690; 85025; 85610; 85730; 87086; 93041; 96365; 96375; 99284; J0744; Q9967

== ENCOUNTER → 2019-08-05 | Outpatient (REF) | payer MEDICARE, OTHER ==
[~2019-08-05] MED LIST changes: +CIPR500T3 PO; -DIGO0.12 PO; +DIGO0.123 PO; +FLAG500T PO; +ONDA4TAB6 PO
[2019-08-05 14:25] LABS: INR 4.35; PROTHROMBIN TIME 41.8 SECONDS (11.8-14.0)
== END ==
LOC: M LAB REF 14:04
PROVIDERS: ATTEND Nurse Practitioner Adult Health
DX: I48.20 Chronic atrial fibrillation, unspecified (principal); Z51.81 Encounter for therapeutic drug level monitoring

== ENCOUNTER → 2019-11-17 | Outpatient (REF) | payer MEDICARE, OTHER | LOC: M LAB REF 12:21 | PROVIDERS: ATTEND Internal Medicine | DX: I48.20 Chronic atrial fibrillation, unspecified (principal) ==

== ENCOUNTER → 2019-12-02 | Outpatient (REF) | payer MEDICARE, OTHER | LOC: M LAB REF 09:28 | PROVIDERS: ATTEND Internal Medicine | DX: I48.21 Permanent atrial fibrillation (principal) ==

== ENCOUNTER → 2020-05-19 | Outpatient (REF) | payer MEDICARE, OTHER | LOC: M LAB REF 12:23 | PROVIDERS: ATTEND Internal Medicine | DX: Z51.81 Encounter for therapeutic drug level monitoring (principal); I48.21 Permanent atrial fibrillation ==